=== PATIENT | female | born 1950 | race Caucasian/White ===

== ENCOUNTER 2016-11-23 14:02 | Emergency (ER) | payer MEDICARE, BC ==
[2016-11-23 13:25] LABS: BASOPHIL% 0.2 % (0-2.5); EOSINOPHIL# 0.2 X10e3 (0-0.7); EOSINOPHIL% 4.3 % (0.0-7.0); HEMATOCRIT 33.9 % (35.0-45.0); HEMOGLOBIN 11.1 gm/dL (12.0-16.0); LYMPHOCYTE# 0.9 X10e3 (1.0-3.5); LYMPHOCYTE% 22.9 % (17.0-45.0); MEAN CELL VOLUME 82.5 FL (83-96); MEAN CORPUSCULAR HGB CONC 32.8 g/dL (30-36); MEAN PLATELET VOLUME 8.8 FL (6.5-11.5); MONOCYTE# 0.8 X10e3 (0-1.0); NEUTROPHIL# 1.9 X10e3 (1.5-7.1); NEUTROPHIL% 50.6 % (40-75); PLATELET COUNT 144 X10e3 (140-420); RED BLOOD COUNT 4.11 X10e (3.90-5.30); RED CELL DISTRIBUTION WIDTH 15.3 % (11.0-15.5); WHITE BLOOD COUNT 3.8 X10e3 (4.0-10.5)
[2016-11-23 13:26] LABS: DIFF IND YES
[2016-11-23 13:43] LABS: BUN/CREATININE RATIO 12.85; CALCIUM SERUM 8.8 mg/dL (8.4-10.2); CREATININE SERUM 0.7 mg/dL (0.6-1.4); GLOM FILT RATE Estimated 89.7 mL/min (>60)
[2016-11-23 13:45] LABS: POTASSIUM 2.5 mmol/L (3.5-5.1)
[2016-11-23 13:50] LABS: PLATELET ESTIMATE NORMAL (NORMAL); RBC NORMAL YES
[~2016-11-23 14:02] MED LIST: ACETAMINOPHEN325 MG PO; ADALATCC; AMBIEN10 MG PO; AMLODIPINE-ATO1 EAC1 PO; ASPIRIN ENTERI325 M1 PO; BACLOFEN10 MG PO; CADUET 5 MG/101 TAB PO; CEFEPIME 22 GM/100 M IV; CELEXA20 M1 PO; CITALOPRAM HBR40 MG PO; CYMBALTA PO; DIAZEPAM PO; DYAZIDE 37.5/251 CAP PO; FERROUS GLUCON324 MG PO; FERROUS SU324 ( 65 ) PO; LANSOPRAZOLE30 M2 PO; LIPITOR; MELOXICAM15 MG PO; MUPIROCIN0.9 GM; NEURONTIN600 MG PO; NEURONTIN800 MG PO; NEXIUM; OMEPRAZOLE40 M1 PO; OPANA ER30 MG PO; OXYCODONE-APAP1 EAC5 PO; OXYCONTIN PO; OXYMORPHONE HCL30 MG PO; PERCOCET 10/31 UDTA1 PO; PERCOCET10 PO; PROMETHAZINE HC25 MG PO; VANCOMYCIN HCL1 GM IV
== END 2016-11-23 14:11 | disposition home or self-care (01) ==
LOC: CED 14:02
PROVIDERS: Emergency Medicine
DX: E87.5 Hyperkalemia (principal); I10 Essential (primary) hypertension; E78.5 Hyperlipidemia, unspecified; F32.9 Major depressive disorder, single episode, unspecified; K21.9 Gastro-esophageal reflux disease without esophagitis
CPT/HCPCS: 36415; 80048; 85025; 99283